=== PATIENT | male | born 1965 | race Two or more races ===

== ENCOUNTER 2020-10-04 07:15 | Outpatient (CLI) | payer OTHER | END 2020-10-04 07:35 | disposition home or self-care (01) | LOC: NUCLEAR 07:15 | PROVIDERS: ATTEND Internal Medicine Cardiovascular Disease | DX: I11.9 Hypertensive heart disease without heart failure (principal); E11.9 Type 2 diabetes mellitus without complications; I25.10 Atherosclerotic heart disease of native coronary artery without angina pectoris | CPT/HCPCS: 78452; 93017; A9500 ==

== ENCOUNTER 2020-11-18 07:13 | Outpatient (CLI) | payer OTHER | END 2020-11-18 07:29 | disposition home or self-care (01) | LOC: NUCLEAR 07:13 | PROVIDERS: ATTEND Internal Medicine Cardiovascular Disease | DX: R07.89 Other chest pain (principal) ==

== ENCOUNTER 2023-05-31 07:06 | Outpatient (CLI) | payer OTHER | END 2023-05-31 07:07 | disposition home or self-care (01) | LOC: NUCLEAR 07:06 | PROVIDERS: ATTEND Internal Medicine | DX: I25.10 Atherosclerotic heart disease of native coronary artery without angina pectoris (principal); I11.9 Hypertensive heart disease without heart failure; I47.20 Ventricular tachycardia, unspecified; Z95.5 Presence of coronary angioplasty implant and graft; E11.9 Type 2 diabetes mellitus without complications ==